=== PATIENT | female | born 1960 | race Two or more races ===

== ENCOUNTER → 2020-11-20 | Outpatient (CLI) | payer MEDICAID | END | disposition home or self-care (01) | LOC: LAB 10:04 | PROVIDERS: ATTEND Internal Medicine Pulmonary Disease | DX: Z01.812 Encounter for preprocedural laboratory examination (principal); Z20.822 Contact with and (suspected) exposure to COVID-19 | CPT/HCPCS: 36415; 87426 ==

== ENCOUNTER → 2020-11-21 | Outpatient (CLI) | payer MEDICAID ==
[~2020-11-21] MED LIST: ALBUTEROL SULF 2.5 MG/0.5ML(0.5%) NEB SOLN ONE
== END | disposition home or self-care (01) ==
LOC: RT 08:35
PROVIDERS: ATTEND Internal Medicine Pulmonary Disease
DX: U07.1 COVID-19 (principal)
CPT/HCPCS: 94010; 94618

== ENCOUNTER → 2021-05-02 | Outpatient (CLI) | payer MEDICAID | END | disposition home or self-care (01) | LOC: RT 08:31 | PROVIDERS: ATTEND Internal Medicine Pulmonary Disease | DX: U07.1 COVID-19 (principal); J98.4 Other disorders of lung | CPT/HCPCS: 94060; 94727; 94729 ==